=== PATIENT | female | born 1985 | race Two or more races ===

== ENCOUNTER 2019-12-06 20:08 | Emergency (ER) | payer MEDICAID ==
[~2019-12-06] VITALS: Ht 154.9 cm; Wt 73.9 kg
[~2019-12-06 20:08] MED LIST: NORPTMEDS
[2019-12-06 21:01] LABS: Urine Bacteria NONE SEEN /hpf (None Seen); Urine Blood 2+ /uL (Negative); Urine Mucus FEW (None Seen); Urine Specific Gravity 1.016 (1.001-1.035); Urine WBC 148 /hpf (0 - 5)
[2019-12-06 21:40] VITALS: BP 127/64
[2019-12-06] MEDS ORDERED: cefTRIAXone SOD 1,000 MG VL IM ONE (22:00)
[2019-12-06] MEDS ORDERED: KETOROLAC TROMETH 60MG/2ML VIAL IM ONE (22:00)
[2019-12-06] MEDS ORDERED: PHENAZOPYRIDINE HCL 100 MG TAB PO ONE (23:00)
== END 2019-12-06 23:17 | disposition home or self-care (01) ==
LOC: ER 20:12
DX: N39.0 Urinary tract infection, site not specified (principal); R30.0 Dysuria; Z32.02 Encounter for pregnancy test, result negative; Z88.6 Allergy status to analgesic agent
CPT/HCPCS: 81001; 81025; 96372; 99284; J0696; J1885

== ENCOUNTER 2021-08-07 06:52 | Emergency (ER) | payer MEDICAID, OTHER ==
[~2021-08-07] VITALS: Ht 154.9 cm; Wt 68.0 kg
[2021-08-07 09:47] VITALS: BP 139/93
[2021-08-07] MEDS ORDERED: ONDANSETRON ODT 4 MG TAB PO ONE ×2 (10:30→13:00)
[2021-08-07] MEDS ORDERED: PROMETHAZINE HCL 25 MG/ML 1ML IM ONE (11:00)
[2021-08-07] MEDS ORDERED: ACETAMINOPHEN 325 MG TAB PO ONE (11:15)
[2021-08-07] MEDS ORDERED: SODIUM CHLORIDE 0.9% 1,000 ML IV ONE (11:15)
[2021-08-07] MEDS ORDERED: DOXY-286 PO (12:14)
[2021-08-07] MEDS ORDERED: ALBUAER3 IN (12:14)
[2021-08-07] MEDS ORDERED: ONDA-144 PO (12:14)
[2021-08-07] MEDS ORDERED: ACET-1158 PO (12:14)
[2021-08-07] MEDS ORDERED: PRED20TA2 PO (12:14)
[2021-08-07] MEDS ORDERED: HYDROcodone-ACET 10/325MG TAB PO ONE (13:00)
== END 2021-08-07 13:41 | disposition home or self-care (01) ==
LOC: MERGE 06:52 → ER 06:52 → EDBD 06:52 → ER 13:41
DX: U07.1 COVID-19 (principal); R19.7 Diarrhea, unspecified; R11.2 Nausea with vomiting, unspecified
CPT/HCPCS: 36415; 71045; 87426; 96360; 96372; 99284; J2550; J7030; Q0162

== ENCOUNTER 2022-10-24 18:45 | Emergency (ER) | payer MEDICAID ==
[~2022-10-24] VITALS: Ht 154.9 cm; Wt 71.6 kg
[~2022-10-24 18:45] MED LIST changes: +ACET-1158 PO; +ALBUAER3 IN; +DOXY-286 PO; +ONDA-144 PO; +PRED20TA2 PO
[2022-10-24 20:07] LABS: Basophils # (auto) 0 10 ^3/uL (0-0.2); Basophils % (auto) 0.4 % (0.0-2.0); Eosinophils # (auto) 0.1 10 ^3/uL (0-0.8); Eosinophils % (auto) 0.5 % (0.0-7.0); Hematocrit 40.6 % (36.0-46.0); Hemoglobin 13.8 g/dL (12.2-16.2); Lymphocytes # (auto) 1.8 10 ^3/uL (0.4-5.4); Lymphocytes % (auto) 17.3 % (10.0-50.0); Mean Corpuscular Hemoglobin 31.2 pg (28.0-32.0); Mean Corpuscular Hgb Conc. 33.9 g/dL (32.0-36.0); Monocytes # (auto) 0.7 10 ^3/uL (0-1.3); Monocytes % (auto) 6.4 % (0.0-12.0); Neutrophils # (auto) 7.9 10 ^3/uL (1.6-8.6); Neutrophils % (auto) 75.4 % (37.0-80.0); Nucleated Red Blood Cells % 0.1 %; Red Blood Cells 4.41 10^6/uL (4.0-5.20); Red Cell Distribution Width 12.7 % (11.8-14.3); White Blood Cell 10.5 10^3/uL (4.4-10.8)
[2022-10-24 20:25] LABS: Albumin 3.8 g/dL (3.4-5.0); BUN/Creatinine Ratio 9.2 (10.0-20.0); Calcium 9.1 mg/dL (8.5-10.1); Potassium 3.8 mmol/L (3.5-5.1)
[2022-10-24 20:40] LABS: Urine Bacteria FEW /hpf (None Seen); Urine Blood Negative /uL (Negative); Urine Specific Gravity 1.002 (1.001-1.035); Urine WBC 3 /hpf (0 - 5)
[2022-10-24 20:43] LABS: Bilirubin, Total 0.3 mg/dL (0.2-1.0); Total Protein 7.3 g/dL (6.4-8.2)
[2022-10-24] MEDS ORDERED: CEPH-510 PO (20:54)
[2022-10-24] MEDS ORDERED: CEPHALEXIN 250 MG CAP PO ONE (22:45)
[2022-10-24 23:16] VITALS: BP 118/73
== END 2022-10-24 23:18 | disposition home or self-care (01) ==
LOC: ER 18:45
DX: O23.41 Unspecified infection of urinary tract in pregnancy, first trimester (principal); N39.0 Urinary tract infection, site not specified; R10.32 Left lower quadrant pain; R10.2 Pelvic and perineal pain; Z79.2 Long term (current) use of antibiotics; Z79.899 Other long term (current) drug therapy; Z88.5 Allergy status to narcotic agent; Z88.8 Allergy status to other drugs, medicaments and biological substances; Z3A.01 Less than 8 weeks gestation of pregnancy
CPT/HCPCS: 36415; 76801; 76817; 80053; 81001; 84702; 85025

== ENCOUNTER 2023-05-19 13:30 | Observation (INO) | payer MEDICAID ==
[~2023-05-19] VITALS: Ht 154.9 cm; Wt 84.4 kg
[~2023-05-19 13:30] MED LIST changes: -ACET-1158 PO; +ACET500T58 PO; +CEPH-510 PO
[2023-05-19 16:09] LABS: Fern Testing Negative
== END 2023-05-19 16:40 | disposition home or self-care (01) ==
LOC: UNDOADMOB 13:30 → LDRP 13:30
PROVIDERS: ADMIT Obstetrics & Gynecology; ATTEND Obstetrics & Gynecology
DX: O47.03 False labor before 37 completed weeks of gestation, third trimester (principal); O99.891 Other specified diseases and conditions complicating pregnancy; O26.893 Other specified pregnancy related conditions, third trimester; N89.8 Other specified noninflammatory disorders of vagina; R10.30 Lower abdominal pain, unspecified; Z88.6 Allergy status to analgesic agent; Z88.5 Allergy status to narcotic agent; Z91.013 Allergy to seafood; Z3A.36 36 weeks gestation of pregnancy
CPT/HCPCS: 59025; 81002; 84112; 94760; G0378; Q0114

== ENCOUNTER 2024-11-25 07:00 | Emergency (ER) | payer MEDICAID ==
[~2024-11-25] VITALS: Ht 154.9 cm; Wt 70.0 kg
[~2024-11-25 07:00] MED LIST changes: +PREN1TAB71 OR
[2024-11-25 07:29] VITALS: BP 112/74; PULSE 68; RESP 14; TEMP 98.2; O2SAT 99
--- NOTE | 2024-11-25 07:41 | ED.PDOC ---
GI ASSESSMENT HPI Comments A 39 YEAR OLD FEMALE NEEL PRESENTS TO THE ED WITH CHIEF COMPLAINT OF PELVIC PAIN. PATIENT REPORTS THAT AT AROUND 5:45AM, SHE STARTED TO EXPERIENCE RIGHT SIDED PELVIC PAIN. PATIENT RELAYS THAT SHE HAS BEEN HAVING INTERMITTENT PELVIC PAIN SINE HAVING HER IUD PLACED A YEAR AGO. PATIENT STATES HER LMP WAS LAST MONTH, BUT SINCE HAVING HER IUD PLACED THEY HAVE BEEN IRREGULAR. RIGHT PELVIC PAIN RADIATES TO RIGHT LOWER BACK AND RIGHT THIGH. MOVEMENT INCREASES THE PAIN. PATIENT DENIES ANY N/V/D, DIZZINESS, FEVER, CHILLS, OR VAGINAL BLEEDING. NO OTHER SYMPTOMS REPORTED AT THIS TIME OF CARE. Chief Complaint: Pelvic Pain Time Seen by MD: 07:30 Primary Care Provider: UNKNOWN Reviewed Notes: Nurses Notes, Medications, Allergies Allergies: Coded Allergies: Acetaminophen (Verified Allergy, Severe, SEIZURES, 05/18/16) Codeine (Verified Allergy, Severe, SEIZURES, 05/18/16) Tramadol (Verified Adverse Reaction, Severe, SEIZURES, 05/18/16) Home Meds Active Scripts Ibuprofen (Ibuprofen) 800 Mg Tab, 1 TAB PO TID, #30 TAB Prov:MAICO KHAN 11/25/24 Cephalexin ( Keflex 500) 500 Mg Cap, 1 CAP PO QID for 10 Days, #40 CAP Prov:ROSALIO FRANKS MD 10/24/22 Prednisone (Prednisone) 20 Mg Tab, 20 MG PO BID for 5 Days, #10 MG 0 Refills Prov:RICH OZUNA 08/07/21 Albuterol Sulfate (VENTOLIN MDI) 90 Mcg Ih, 90 MCG IN QIDP, #1 INH 0 Refills Prov:RICH OZUNA 08/07/21 Ondansetron (Zofran) 4 Mg Tab, 1 TAB PO Q8HR PRN, #14 TAB 0 Refills Prov:RICH OZUNA 08/07/21 Doxycycline Hyclate (DOXYCYCLINE HYCLATE) 100 Mg Tab, 1 TAB PO BID for 7 Days, #14 TAB 0 Refills Prov:RICH OZUNA 08/07/21 Acetaminophen (Acetaminophen) 500 Mg Tab, 500 MG PO QIDP, #30 TAB 0 Refills Prov:RICH OZUNA 08/07/21 Reported Medications Vit W/ Ferrous Fumara (PNV PLUS MULTIVI) Plus Tab, 1 OR, TAB 05/25/23 No Reported Medication (NO REPORTED MEDICATION) Ea, PRN for TEMP>102, EA PATIENT HAS NO REPORTED MEDICATIONS 05/15/16 Information Source: Patient, Emergency Med Personnel Mode of Arrival: EMS Timing: Hours Duration: Since onset, Hours Prehospital treatment: None Quality: Sharp Vomitus: None Stool: Normal Severity: Moderate Recent: None Recent Hx of: None Pain Location: RLQ, Suprapubic (RT) Modifying Factors: Position, Movement Associated sign and symptoms: Abdominal Pain, Other (BACK AND THIGH) Past Medical History PAST MEDICAL HISTORY: Gallstones, UTI'S Surgical History: Denies all surgeries FORECLOSURE CLERK History: No Pertinent FORECLOSURE CLERK History Family History Family History: Reviewed,noncontributory to illness, No family hx of DM, No family hx of HTN, No family hx of Stroke Social History Smoker: Non-Smoker Alcohol: Occasionally Drugs: Denies Drug Use Lives In: Home Constitutional: reports: others (ANXIOUS ); denies: chills, diaphoresis, f atigue, fever, malaise, sweats, weakness EENTM: denies: blurred vision, double vision, ear bleeding, ear discharge, ear drainage, ear pain, ear ringing, eye pain, eye redness, hearing loss, mouth pain, mouth swelling, nasal discharge, nose bleeding, nose congestion, nose pain, photophobia, tearing, throat pain, throat swelling, voice changes, others Respiratory: denies: cough, hemoptysis, orthopnea, SOB at rest, shortness of breath, SOB with excertion, stridor, wheezing, others Cardiovascular: denies: chest pain, dizzy spells, diaphoresis, Dyspnea on exertion, edema, irregular heart beat, left arm pain, lightheadedness, palpitations, PND, syncope, others Gastrointestinal: reports: abdominal pain (RT SUPRAPUBIC PAIN); denies: abdomen distended, blood streaked bowels, constipated, diarrhea, dysphagia, difficulty swallowing, hematemesis, melena, nausea, poor appetite, poor fluid intake, rectal bleeding, rectal pain, vomiting, others Genitourinary: reports: pain (RIGHT PELVIC ); denies: abnormal vagina bleeding, burning, dyspareunia, dysuria, flank pain, frequency, hematuria, incontinence, , vagina discharge, urgency, others Neurological: denies: dizziness, fainting, headache, left sided numbness, left sided weakness, numbness, paresthesia, pre-existing deficit, right sided numbness, right sided weakness, seizure, speech problems, tingling, tremors, weakness, others Musculoskeletal: denies: back pain, gout, joint pain, joint swelling, muscle pain, muscle stiffness, neck pain, others Integumetry: denies: bruises, change in color, change in hair/nails, dryness, laceration, lesions, lumps, rash, wounds, others Allergic/Immunocompromised: denies: Difficulty Healing, Frequent Infections, Hives, Itching, others Hematologic/Lymphatic: denies: anemia, blood clots, easy bleeding, easy bruising, swollen glands, others Endocrine: denies: excessive hunger, excessive sweating, excessive thirst, excessive urination, flushing, intolerance to cold, intolerance to heat, unexplained weight gain, unexplained weight loss, others Psychiatric: denies: anxiety, bipolar disorder, depression, hopeless, panic d isorder, schizophrenia, sleepless, suicidal, others All Other Systems: Reviewed and Negative Physical Exam General Appearance: No Apparent Distress, Normal, Other (ANXIOUS ) HEENT: Normal ENT Inspection, PERRL/EOMI, Pharynx Normal, TMs Normal Neck: Full Range of Motion, Non-Tender, Normal, Normal Inspection Respiratory: Chest Non-Tender, Lungs Clear, No Accessory Muscle Use, No Respiratory Distress, Normal Breath Sounds Cardiovascular: No Edema, No JVD, No Murmur, No Gallop, Normal Peripheral Pulses, Regular Rate/Rhythm Breast Exam: Deferred Gastrointestinal: No Organomegaly, No Pulsatile Mass, Normal Bowel Sounds, RLQ, Soft, Tenderness (RIGHT LOWER ABD, NO GUARDING AND REBOUND TENDERNESS. ) Genitalia: Deferred Pelvic: Normal External Exam, Tender Adnexa (TENDERNESS RIGHT PELVIC, NO GUARDING AND REBOUND TENDERNESS. ) Rectal: Deferred Extremities: No calf tenderness, Normal capillary refill, Normal inspection, Normal range of motion, Non-tender, No pedal edema Musculoskeletal : Location: Bilateral Extremity Location: Back Apperance: Tenderness (AND MUSCLE SPASM ON LOWER BACK, NO BONY TENDERNESS, SWELLING AND DEFORMITY. ) Neurologic: Alert, fabrication engineer II-XII nml as Tested, No Motor Deficits, Normal Affect, Normal Mood, No Sensory Deficits Cerebellar Function: Normal Reflexes: Normal Skin: Dry, Normal Color, Warm Peripheral Pulses: 2+ carotid (R), 2+ carotid (L) Lymphatic: No Adenopathy Was a procedure done? Was a procedure done?: No GI differential Dx Differential Diagnosis: Appendicitis, Gastroenteritis, Inflammatory BD, Ovarian cyst/torsion, UTI, Urolithiasis X-Ray, Labs, Meds, VS Vital Signs Date Time Temp Pulse Resp B/P (MAP) Pulse Ox O2 Delivery O2 Flow Rate FiO2 11/25/24 07:29 68 14 99 Room Air 11/25/24 07:29 98.2 68 14 112/74 (87) 99 98.2 11/25/24 07:13 98.2 68 14 112/74 (87) 99 98.2 Lab Test 11/25/24 07:48 11/25/24 07:31 Range/Units White Blood Count 7.1 4.4-10.8 10^3/uL Red Blood Count 4.53 4.0-5.20 10^6/uL Hemoglobin 14.2 12.2-16.2 g/dL Hematocrit 41.7 36.0-46.0 % Mean Corpuscular Volume 92.1 80.0-100.0 fL Mean Corpuscular Hemoglobin 31.4 28.0-32.0 pg Mean Corpuscular Hemoglobin Concent 34.1 32.0-36.0 g/dL Red Cell Distribution Width 13.2 11.8-14.3 % Platelet Count 327 140-450 10^3/uL Mean Platelet Volume 7.7 6.9-10.8 fL Neutrophils (%) (Auto) 66.1 37.0-80.0 % Lymphocytes (%) (Auto) 23.1 10.0-50.0 % Monocytes (%) (Auto) 8.6 0.0-12.0 % Eosinophils (%) (Auto) 1.5 0.0-7.0 % Basophils (%) (Auto) 0.7 0.0-2.0 % Neutrophils # (Auto) 4.7 1.6-8.6 10 ^3/uL Lymphocytes # (Auto) 1.6 0.4-5.4 10 ^3/uL Monocytes # (Auto) 0.6 0-1.3 10 ^3/uL Eosinophils # (Auto) 0.1 0-0.8 10 ^3/uL Basophils # (Auto) 0 0-0.2 10 ^3/uL Nucleated Red Blood Cells 0.0 % Sodium Level 139 136-145 mmol/L Potassium Level 4.0 3.5-5.1 mmol/L Chloride Level 108 H 98-107 mmol/L Carbon Dioxide Level 25 20-31 mmol/L Anion Gap 6 5-15 Blood Urea Nitrogen 6 L 9-23 mg/dL Creatinine 0.67 0.550-1.02 mg/dL Glomerular Filtration Rate Calc 115 >90 mL/min BUN/Creatinine Ratio 9.0 L 10.0-20.0 Serum Glucose 107 H 74-106 mg/dL Calcium Level 9.7 8.7-10.4 mg/dL Urine Color Light-yellow Yellow Urine Clarity Clear Clear Urine pH 5.5 5.0-9.0 Urine Specific [place] 1.012 1.001-1.035 Urine Protein Negative Negative Urine Ketones Negative Negative Urine Blood Negative Negative /uL Urine Nitrite Negative Negative Urine Bilirubin Negative Negative Urine Urobilinogen Normal Negative mg/dL Urine Leukocyte Esterase Negative Negative /uL Urine RBC <1 0 - 4 /hpf Urine Microscopic WBC 1 0-5 /HPF Urine Squamous Epithelial Cells Few <5 /hpf Urine Bacteria Few H None Seen /hpf Urine Glucose Normal Normal mg/dL Urine Test Negative Negative Current Medications Medications (Trade) Dose Ordered Sig/Lauri Route Start Time Stop Time Status Last Admin Sodium Chloride 1,000 ml @ 1,000 mls/hr Q1H ONCE IV 11/25/24 07:45 11/25/24 08:44 DC 11/25/24 07:54 CT ABD/PEL: FINDINGS: Lung bases: Lung bases are clear. Liver: Grossly unremarkable in its noncontrast enhanced appearance. No abnormal density or focal lesion identified. Biliary: 2 cm calcified gallstone in the gallbladder. Spleen: Unremarkable. Pancreas: Grossly unremarkable in its noncontrast enhanced appearance. Adrenal glands: Unremarkable. No mass. Kidneys: No hydronephrosis. No renal or ureteral calculi. Aorta/Vascular: No aneurysm or significant calcification. Retroperitoneum: No mass or lymphadenopathy. Bowel/mesentery: No small bowel obstruction. No free air or free fluid. Appendix is visualized and appears normal in thickness, without evidence of acute appendicitis. Appendicoliths noted within the lumen of the appendix. Scattered colonic diverticula without adjacent inflammatory changes to suggest diverticulitis. Pelvic organs: IUD within the fundal endometrial canal, in expected position. Bladder: [id number] circumferential wall thickening of the bladder. Abdominal wall: No mass or hernia. Bones: No acute fracture or suspicious intraosseous lesion. IMPRESSION: 1. Scattered colonic diverticula without adjacent inflammatory changes to suggest diverticulitis. 2. Cholelithiasis. 3. Circumferential thickening of the bladder wall is nonspecific. Correlate clinically for cystitis. 4. Additional nonacute findings as described above. X-Ray, Labs, Meds, VS Comment EXTERNAL MEDICAL RECORDS REVIEWED: [NONE] INDEPENDENT HISTORIANS: [NONE] SOCIAL DETERMINANTS OF HEALTH: [NONE] LABS ORDERED: CBC, BMP, UA, PREG URINE REVIEWED AND INTERPRETED RESULTS: CT ABD/PEL IMAGING ORDERED: CT ABD/PEL TREATMENTS ORDERED: TORADOL 30MG IV, NS 1L IV PROCEDURES PERFORMED: NONE CRITICAL CARE TIME: NONE I HAVE DISCUSSED THE PATIENT WITH THE ATTENDING PHYSICIAN DR. BROWN AND HE AGREES WITH THE PATIENT'S PLAN OF CARE AND DISPOSITION. BASED ON HISTORY OF PRESENT ILLNESS, AND PHYSICAL EXAM, PATIENT WILL BE DISCHARGED HOME. DISCUSSED PLAN FOR DISCHARGE HOME WITH RX: MOTRIN 800MG. MEDICATION WARNINGS GIVEN. SHARED DECISION MAKING: DISCUSSED WITH PATIENT THAT THEIR WORKUP WAS NORMAL. PATIENT INSTRUCTED TO FOLLOW UP WITH PRIMARY CARE PROVIDER IN 1-2 DAYS FOR RE- EVALUATION OF SYMPTOMS. PATIENT VERBALIZES UNDERSTANDING TO RETURN TO ED FOR NEW OR WORSENING SYMPTOMS OR IF FOLLOW UP WITH PCP CANNOT BE OBTAINED. PATIENT FEELS COMFORTABLE GOING HOME AT THIS TIME. ALL QUESTIONS ADDRESSED AT TIME OF DISCHARGE. Time of 1ST Reevaluation: 08:00 Reevaluation 1ST: Improved Time of 2ND Reevaluation: 09:25 Patient Education/Counseling: Diagnosis, Treatment, Need For Follow Up Family Education/Counseling: Treatment, Need For Follow Up Medical Screening: No EMC Exist At This Time Departure 1 Departure Time of Disposition: 09:25 Impression: Primary Impression: Pelvic pain Additional Impression: Right sciatic nerve pain Disposition: HOME / SELF CARE / HOMELESS Condition: Stable Additional Instructions: FOLLOW-UP WITH PCP IN 1 TO 2 DAYS. TAKE MEDICATIONS PRESCRIBED. RETURN TO ED FOR ANY NEW OR WORSENING SYMPTOMS. e-Prescriptions Ibuprofen (Ibuprofen) 800 Mg Tab 1 TAB PO TID, #30 TAB Prov: MAICO KHAN 11/25/24 Discharged With: Self, Relative Critical Care Note Critical Care Time?: No Stability Stability form required: No Heart Score Heart Score: Heart Score Response (Comments) Value History N/A 0 EKG N/A 0 Age N/A 0 Risk Factors N/A 0 Troponin N/A 0 Total 0 I personally scribed for MAICO KHAN ([email or web address]) on 11/25/24 at 07:41. Electronically submitted by Urbano De La Rosa ([email or web address]). I personally scribed for MAICO KHAN ([email or web address]) on 11/25/24 at 08:52. Electronically submitted by Urbano De La Rosa ([email or web address]). I personally scribed for MAICO KHAN ([email or web address]) on 11/25/24 at 09:18. Electronically submitted by Urbano De La Rosa ([email or web address]). MAICO KHAN Nov 25, 2024 07:41
[2024-11-25] MEDS: SODIUM CHLORIDE 0.9% 1,000 ML IV ONE (07:54)
[2024-11-25 08:03] LABS: Urine Bacteria FEW /hpf (None Seen); Urine Blood Negative /uL (Negative); Urine Clarity Clear (Clear); Urine Color Light-Yellow (Yellow); Urine Protein, UAD Negative (Negative); Urine Specific Gravity 1.012 (1.001-1.035); Urine Squamous Epithelial Cell FEW /hpf (<5); Urine Urobilinogen Normal (Negative); Urine WBC 1 /HPF (0-5); Urine pH 5.5 (5.0-9.0)
[2024-11-25 08:04] LABS: Basophils # (auto) 0 10 ^3/uL (0-0.2); Basophils % (auto) 0.7 % (0.0-2.0); Eosinophils # (auto) 0.1 10 ^3/uL (0-0.8); Eosinophils % (auto) 1.5 % (0.0-7.0); Hematocrit 41.7 % (36.0-46.0); Hemoglobin 14.2 g/dL (12.2-16.2); Lymphocytes # (auto) 1.6 10 ^3/uL (0.4-5.4); Lymphocytes % (auto) 23.1 % (10.0-50.0); Mean Corpuscular Hemoglobin 31.4 pg (28.0-32.0); Mean Corpuscular Hgb Conc. 34.1 g/dL (32.0-36.0); Mean Corpuscular Volume 92.1 fL (80.0-100.0); Monocytes # (auto) 0.6 10 ^3/uL (0-1.3); Monocytes % (auto) 8.6 % (0.0-12.0); Neutrophils # (auto) 4.7 10 ^3/uL (1.6-8.6); Neutrophils % (auto) 66.1 % (37.0-80.0); Platelet Count (auto) 327 10^3/uL (140-450); Red Blood Cells 4.53 10^6/uL (4.0-5.20); Red Cell Distribution Width 13.2 % (11.8-14.3); White Blood Cell 7.1 10^3/uL (4.4-10.8)
[2024-11-25 08:20] LABS: Sodium 139 mmol/L (136-145)
[2024-11-25 08:21] LABS: Anion Gap 6 (5-15); Calcium 9.7 mg/dL (8.7-10.4); Carbon Dioxide 25 mmol/L (20-31)
[2024-11-25 08:24] LABS: Chloride 108 mmol/L (98-107)
[2024-11-25 08:31] LABS: Blood Urea Nitrogen 6 mg/dL (9-23); Glucose 107 mg/dL (74-106)
[2024-11-25] MEDS: KETOROLAC TROMETH 30 MG/ML 1ML VIAL IV ONE (08:52)
--- NOTE | 2024-11-25 09:11 | DVH ---
CLINICAL INFORMATION: 39 years old, Female; RIGHT LOWER ABD PAIN AND PELVIC PAIN. TECHNIQUE: Axial CT images of the abdomen and pelvis were obtained without IV contrast. Coronal and s agittal reformatted images were obtained, reviewed, and stored. Evaluation of the parenchymal organs is limited without IV contrast. Evaluation of the bowel and mesentery is limited without oral contras t. All CT scans at this medical facility are performed using dose modulation techniques as appropriat e to a performed exam including the following: Automated exposure control was utilized; adjustment of the MA and/or KV according to patient size; and use of iterative reconstruction technique. CTDIvol = 8.02 mGy DLP = 385.82 mGy-cm COMPARISON: None FINDINGS: Lung bases: Lung bases are clear. Liver: Grossly unremarkable in its noncontrast enhanced appearance. No abnormal density or focal lesi on identified. Biliary: 2 cm calcified gallstone in the gallbladder. Spleen: Unremarkable. Pancreas: Grossly unremarkable in its noncontrast enhanced appearance. Adrenal glands: Unremarkable. No mass. Kidneys: No hydronephrosis. No renal or ureteral calculi. Aorta/Vascular: No aneurysm or significant calcification. Retroperitoneum: No mass or lymphadenopathy. Bowel/mesentery: No small bowel obstruction. No free air or free fluid. Appendix is visualized and ap pears normal in thickness, without evidence of acute appendicitis. Appendicoliths noted within the l umen of the appendix. Scattered colonic diverticula without adjacent inflammatory changes to suggest diverticulitis. Pelvic organs: IUD within the fundal endometrial canal, in expected position. Bladder: [id number] circumferential wall thickening of the bladder. Abdominal wall: No mass or hernia. Bones: No acute fracture or suspicious intraosseous lesion. IMPRESSION: 1. Scattered colonic diverticula without adjacent inflammatory changes to suggest diverticulitis. 2. Cholelithiasis. 3. Circumferential thickening of the bladder wall is nonspecific. Correlate clinically for cystitis. 4. Additional nonacute findings as described above.
[2024-11-25] MEDS ORDERED: IBUP-1456 PO (09:22)
== END 2024-11-25 09:38 | disposition home or self-care (01) ==
LOC: ER 07:00 → EDSEX 07:00 → EDBD 07:00 → ER 09:32
DX: R10.2 Pelvic and perineal pain (principal); M54.31 Sciatica, right side; Z79.1 Long term (current) use of non-steroidal anti-inflammatories (NSAID); Z79.52 Long term (current) use of systemic steroids; Z88.5 Allergy status to narcotic agent
CPT/HCPCS: 36415; 74176; 80048; 81001; 81025; 85025; 96360; 96361; 99284; J1885; J7030